=== PATIENT | female | born 1960 | race Caucasian/White ===

== ENCOUNTER 2018-04-28 19:30 | Outpatient (CLI) | payer MEDICARE | END 2018-04-28 19:31 | disposition home or self-care (01) | LOC: SLEEPLAB 19:30 | PROVIDERS: ATTEND Family Medicine | DX: G47.33 Obstructive sleep apnea (adult) (pediatric) (principal); F41.9 Anxiety disorder, unspecified; Z94.2 Lung transplant status; I10 Essential (primary) hypertension; I49.3 Ventricular premature depolarization | CPT/HCPCS: 95810 ==

== ENCOUNTER 2018-05-12 20:30 | Outpatient (CLI) | payer MEDICARE | END 2018-05-12 20:31 | disposition home or self-care (01) | LOC: SLEEPLAB 20:30 | PROVIDERS: ATTEND Family Medicine | DX: G47.33 Obstructive sleep apnea (adult) (pediatric) (principal); Z48.24 Encounter for aftercare following lung transplant; F41.9 Anxiety disorder, unspecified; R06.83 Snoring; G47.10 Hypersomnia, unspecified; E66.9 Obesity, unspecified; Z68.43 Body mass index [BMI] 50.0-59.9, adult | CPT/HCPCS: 95811 ==

== ENCOUNTER 2020-03-10 15:19 | Observation (INO) | payer MEDICARE ==
[~2020-03-10 15:19] MED LIST: Iopamidol-370 76% 500 ML 1 ML ONE
[2020-03-10] MEDS ORDERED: Morphine 4 MG/ML VIAL ONE (16:01)
--- NOTE | 2020-03-10 16:05 | RAD ---
Exam: Chest one view HISTORY:Fall. Dizziness. Comparison: 12/24/2014 FINDINGS: Cardiac silhouette:Cardiomegaly. There is slight rightward rotation of the patient which accentuates right heart border. Aorta: Unremarkable Pulmonary vessels: Normal Costophrenic angles: Clear LUNGS: No masses or consolidation. Pneumothorax: None Osseous abnormalities: None IMPRESSION: No acute cardiopulmonary process.
[2020-03-10 16:19] LABS: Bilirubin Negative (Negative); Blood, Urine Negative (Negative); Clarity Clear (Clear); Glucose, Urine (Dipstick) Normal (Negative); Ketone, Urine Negative (Negative); Leukocyte Negative Leu/uL (Negative); Nitrite Negative (Negative); Protein, Urine (Dipstick) Negative (Neg-Trace); Specific Gravity, Urine 1.018 (1.002-1.036); Urobilinogen Normal mg/dL (Less than 2); pH, Urine 6.5 (5.0-9.0)
[2020-03-10 16:24] LABS: #Monocytes 0.8 thou/uL (0.11-0.59); #Neutrophils 7.4 thou/uL (1.40-6.50); %Basophils 0.1 % (0.0-1.0); %Eosinophils 0.1 % (0.0-10.0); %Lymphocytes 11.1 % (21.0-51.0); %Monocytes 8.2 % (0.0-10.0); %Neutrophils 80.6 % (42.0-75.0); Hemoglobin 13.4 g/dL (12.0-16.0); Mean Corpuscular HGB CONC 32.4 g/dL (32.0-36.0); Mean Corpuscular Hemoglobin 29.1 pg (27.0-31.0); Mean Corpuscular Volume 89.7 fL (78.0-98.0); Mean Platelet Volume 8.1 fL (7.4-10.4); Platelet Count 241 thou/uL (130-400); RBC Distribution Width 14.6 % (11.5-14.5); Red Blood Cell (RBC) Count 4.61 mill/uL (4.20-5.40); White Blood Cell (WBC) Count 9.2 thou/uL (4.8-10.8)
[2020-03-10 16:30] LABS: INR-International Normal Ratio 1.7; PTT 39.3 sec (22.9-36.1); Prothrombin Time 20.5 sec (12.0-14.7)
[2020-03-10 16:45] LABS: ALT (SGPT) 19 U/L (8-55); AST (SGOT) 24 U/L (5-34); Albumin 3.3 g/dL (3.5-5.0); Alkaline Phosphatase 113 U/L (40-110); Anion Gap 15 mmol/L (10-20); BUN (Urea Nitrogen) 19 mg/dL (9.8-20.1); Bilirubin, Total 0.4 mg/dL (0.2-1.2); Calc. Creatinine Clearance 0 mL/min (70-130); Calcium 8.8 mg/dL (7.8-10.44); Carbon Dioxide 22 mmol/L (22-29); Chloride 109 mmol/L (98-107); Globulin 2.7 g/dL (2.4-3.5); Glucose 102 mg/dL (70-105); Potassium 4.1 mmol/L (3.5-5.1); Sodium 142 mmol/L (136-145)
--- NOTE | 2020-03-10 17:00 | CT ---
Exam: Head CT without contrast HISTORY: Fall. Pain. Dizziness. COMPARISON: 12/24/2014 FINDINGS: Hemorrhage: No intraparenchymal hemorrhage or extra-axial hematoma. Brain parenchyma: Cortical sosa-white matter differentiation is preserved. No mass effect or midline shift. Basilar cisterns are patent.Nonspecific hypodensity involving the left [place] radiata. Findings may be iatrogenic given the presence of a erik hole defect involving the left frontal calvar ium. Conservatively, brain MRI can be performed. Ventricular system: Ventricles and sulci are patent and symmetric. Calvarium: Cortical defect. No fracture Sinuses and mastoid air cells: Adequate aeration. IMPRESSION: Indeterminate hypodensity involving the left elmore radiata. Chronic changes due to possible previous intervention is a consideration. However, as a conservative measure, brain MRI with and without contrast is recommended.
--- NOTE | 2020-03-10 17:06 | CT ---
CT OF THE ABDOMEN AND PELVIS WITHOUT IV CONTRAST INDICATION: Fall with hip pain and lumbar spine pain COMPARISON: None FINDINGS: The lack of IV contrast limits evaluation of the solid organs of the abdomen and pelvis. ABDOMEN: Lung bases: There is mild subsegmental atelectasis. There are calcified lymph nodes within the medias tinum and hilar regions. Liver: No focal lesion. Gallbladder: Surgically absent Pancreas: Fatty replacement Adrenal glands: Normal. Spleen: Calcified granuloma Kidneys and ureters: Bilateral nephrolithiasis. Largest stone is seen within the lower pole the right kidney measuring 3 mm. Vasculature: Infrarenal IVC filter. There are moderate vascular calcifications seen involving the vis ualized vasculature. Lymph nodes:No lymphadenopathy. Free fluid in abdomen:No free fluid is evident. PELVIS: Small and large bowel: There is diastases of the rectus abdominis within the lower midline anterior a bdominal wall hernia containing unobstructed loops of colon. The abdominal wall hernia mouth measures 4.8 cm. There is a mild amount retained stool within the colon. Small bowel is of normal lorena iber. There is a gastric band in place. Catheter tubing is connected to the port and appears continuous. Appendix:Normal Bladder: Normal. Rectal and perirectal soft tissues:Normal. Reproductive structures: Normal. Free fluid in pelvis: No free fluid is evident. Lymphadenopathy pelvis: No lymphadenopathy is evident. Osseous structures: No acute osseous abnormality. No destructive osteolytic or osteoblastic lesion i s identified. There is scattered degenerative and osteoarthritic changes. Soft tissues:Normal. IMPRESSION: 1. No acute abnormality.
--- NOTE | 2020-03-10 17:50 | PDOC.HHP ---
Hospitalist HPI - History of Present Illness Fall History of Present Illness: PCP: Dr. Ford The patient is a 59-year-old female with a past medical history significant for pulmonary hypertension, bilateral lung transplant (2014), CAD x2 stents, DVT (on Coumadin), SLE, SHARI that presents to the emergency department via EMS for the above complaint. The patient reports while ambulating in her home, she lost her balance and she fell backwards, landing on her "butt". She usually ambulates with a roller walker, however, she was not using it at the time of her fall. She remembers the fall, denies any LOC or hitting her head. She has no head pain or neck stiffness. She does report left shoulder pain and has a history of bilateral rotator cuff issues, which she has not had surgery for at this time. She reports that her left shoulder is a little bit more sore and stiff than usual. She denies any previous injury prior to her fall. No changes to her home medications. No recent fever/illness. No known sick contacts. She denies any chest pain, heart palpitations or lightheadedness. She denies any shortness of breath, cough, wheezing or hemoptysis. She denies any abdominal pain, nause a, vomiting, hematochezia/melena. She denies any dysuria or hematuria. She has no other complaints at this time. ED Course: VITAL SIGNS SunMar 10, 2020 15:25 SARAH Corey Rachel BP: 152/75 (Lying), MAP: 100, Pulse: 66, O2 sat: 98 on (Room Air), Time: 03/10/2020 15:25. VITAL SIGNS SunMar 10, 2020 15:40 SARAH Corey Rachel Temp: 97.8 (Oral), Pain: 8, Time: 03/10/2020 15:40. Medications: morphine injection 4 mg IV Push Given 16:20 03/10/2020 sodium chloride 0.9 % intravenous 1000 mL IV Fluid Infusion Given 16:17 03/10/2020 Hospitalist ROS - Review of Systems All other systems reviewed; all pertinent +/- noted in HPI/Subj - Medication Medications: aspirin oral SunMar 10, 2020 17:05 SARAH Corey Rachel TABLET : Strength - 81 mg : ORAL Patient Dose: 81 mg Oral once a day. levothyroxine oral SunMar 10, 2020 17:05 SARAH Corey Rachel TABLET : Strength - 50 mcg : ORAL Patient Dose: 50 mcg Oral once a day. acyclovir oral SunMar 10, 2020 17:06 SARAH Corey Rachel capsule : Strength - 200 mg : ORAL Patient Dose: Unknown. Citrucel SunMar 10, 2020 17:07 SARAH Corey Rachel tablet : Strength - 500 mg : ORAL Patient Dose: Unknown. folic acid oral SunMar 10, 2020 17:07 SARAH Corey Rachel tablet : Strength - 1 mg : ORAL Patient Dose: Unknown. itraconazole SunMar 10, 2020 17:08 SARAH Corey Rachel capsule : Strength - 100 mg : ORAL Patient Dose: Unknown. magnesium SunMar 10, 2020 17:08 SARAH Corey Rachel tablet : ORAL Patient Dose: Unknown. Reglan oral SunMar 10, 2020 17:08 SARAH Corey Rachel tablet : Strength - 5 mg : ORAL Patient Dose: Unknown. metoprolol tartrate oral SunMar 10, 2020 17:09 SARAH Corey Rachel tablet : Strength - 50 mg : ORAL Patient Dose: Unknown. CellCept SunMar 10, 2020 17:09 SARAH Corey Rachel tablet : Strength - 500 mg : ORAL Patient Dose: Unknown. pravastatin SunMar 10, 2020 17:09 SARAH Corey Rachel tablet : Strength - 80 mg : ORAL Patient Dose: Unknown. predniSONE SunMar 10, 2020 17:10 SARAH Corey Rachel tablet : Strength - 5 mg : ORAL Patient Dose: Unknown. sertraline SunMar 10, 2020 17:12 SARAH Corey Rachel tablet : Strength - 50 mg : ORAL Patient Dose: Unknown. Bactrim DS SunMar 10, 2020 17:13 SARAH Corey Rachel tablet : Strength - 800 mg-160 mg : ORAL Patient Dose: Unknown. tacrolimus oral SunMar 10, 2020 17:15 SARAH Corey Rachel capsule : Strength - 0.5 mg : ORAL Patient Dose: Unknown. topiramate SunMar 10, 2020 17:18 SARAH Corey Rachel capsule, sprinkle : Strength - 25 mg : ORAL Patient Dose: Unknown. warfarin SunMar 10, 2020 17:18 SARAH Corey Rachel tablet : Strength - 1 mg : ORAL Patient Dose: Unknown. 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 negative: ill appearing Eye: PERRL, anicteric sclera ENT: normocephalic atraumatic, moist mucosa Neck: supple, symmetric Heart: RRR, no murmur, no gallops, no rubs, normal peripheral pulses Respiratory: CTAB, no wheezes, no rales, no ronchi, normal chest expansion, no tachypnea Gastrointestinal: soft, non-tender, no guarding, no rigidity Gastrointestinal - other findings: Distant bowel sounds, no rebound tenderness Extremities: no cyanosis, no edema Skin: no rashes Neurological: cranial nerve grossly intact, no new deficit Neurological - other findings: Hints exam unremarkable, GCS 15 Musculoskeletal: normal tone, normal strength Psychiatric: normal affect, A&O x 3 Hospitalist Results - Labs Result Diagrams: 03/10/20 16:11 03/10/20 16:11 Lab results: WBC 9.2 thou/uL (4.8-10.8) 03/10/20 16:11 Hgb 13.4 g/dL (12.0-16.0) 03/10/20 16:11 Hct 41.4 % (36.0-47.0) 03/10/20 16:11 MCV 89.7 fL (78.0-98.0) 03/10/20 16:11 Plt Count 241 thou/uL (130-400) 03/10/20 16:11 Neutrophils % 80.6 % (42.0-75.0) H 03/10/20 16:11 Sodium 142 mmol/L (136-145) 03/10/20 16:11 Potassium 4.1 mmol/L (3.5-5.1) 03/10/20 16:11 Chloride 109 mmol/L (98-107) H 03/10/20 16:11 Carbon Dioxide 22 mmol/L (22-29) 03/10/20 16:11 BUN 19 mg/dL (9.8-20.1) 03/10/20 16:11 Creatinine 0.93 mg/dL (0.6-1.1) 03/10/20 16:11 Glucose 102 mg/dL (70-105) 03/10/20 16:11 Calcium 8.8 mg/dL (7.8-10.44) 03/10/20 16:11 Total Bilirubin 0.4 mg/dL (0.2-1.2) 03/10/20 16:11 AST 24 U/L (5-34) 03/10/20 16:11 ALT 19 U/L (8-55) 03/10/20 16:11 Alkaline Phosphatase 113 U/L (40-110) H 03/10/20 16:11 Serum Total Protein 6.0 g/dL (6.0-8.3) 03/10/20 16:11 Albumin 3.3 g/dL (3.5-5.0) L 03/10/20 16:11 Urine Ketones Negative mg/dL (Negative) 03/10/20 15:52 Urine Blood Negative (Negative) 03/10/20 15:52 Urine Nitrite Negative (Negative) 03/10/20 15:52 Ur Leukocyte Esterase Negative Rachael/uL (Negative) 03/10/20 15:52 - EKG Interpretation EKG: Heart rate 59 QTc 463 sinus bradycardia no ectopy. - Radiology Interpretation CT scan - head Status: report reviewed by me Additional Comment: IMPRESSION: Indeterminate hypodensity involving the left elmore radiata. Chronic changes due to possible previous intervention is a consideration. However, as a conservative measure, brain MRI with and without contrast is recommended. CT scan - abdomen Status: report reviewed by me Additional Comment: IMPRESSION: 1. No acute abnormality. Chest x-ray Status: report reviewed by me Additional Comment: IMPRESSION: No acute cardiopulmonary process. Hospitalist H&P A/P - Problem (1) Abnormal finding on CT scan Code(s): R93.89 - ABNORMAL FINDINGS ON DX IMAGING OF OTH BODY STRUCTURES Status: Acute (2) Left shoulder pain Code(s): M25.512 - PAIN IN LEFT SHOULDER Status: Acute (3) Fall Code(s): W19.XXXA - UNSPECIFIED FALL, INITIAL ENCOUNTER Status: Acute (4) CAD (coronary artery disease) Code(s): I25.10 - ATHSCL HEART DISEASE OF [place] CORONARY ARTERY W/O ANG PCTRS Status: Chronic (5) History of DVT (deep vein thrombosis) Code(s): Z86.718 - PERSONAL HISTORY OF OTHER VENOUS THROMBOSIS AND EMBOLISM Status: Chronic (6) History of lung transplant Code(s): Z94.2 - LUNG TRANSPLANT STATUS Status: Chronic (7) SHARI (obstructive sleep apnea) Code(s): G47.33 - OBSTRUCTIVE SLEEP APNEA (ADULT) (PEDIATRIC) Status: Chronic (8) HTN (hypertension) Code(s): I10 - ESSENTIAL (PRIMARY) HYPERTENSION Status: Chronic (9) HLD (hyperlipidemia) Code(s): E78.5 - HYPERLIPIDEMIA, UNSPECIFIED Status: Chronic (10) Anxiety Code(s): F41.9 - ANXIETY DISORDER, UNSPECIFIED Status: Chronic (11) Hypothyroidism Code(s): E03.9 - HYPOTHYROIDISM, UNSPECIFIED Status: Chronic - Plan Plan: 59/F with PMH DVT (on Coumadin) presents for fall. Admit to stroke unit, observation status. Expected length of stay less than 2 midnights. Presented stable vital signs. EKG sinus bradycardia, no ST elevation CT brain indeterminate hypodensity of left [place] radiata. CT abdomen pelvis no acute process. CXR no acute cardiopulmonary process. PT 20.5, INR 1.7 UA, CMP, CBC unremarkable #Abnormal finding on CT scan Neurosurgery consulted by ER MD, recommend MRI in a.m. Has history brain stem abscess with I&D. Will consult neurology. #Left shoulder pain Reports increased pain to left shoulder. History chronic rotator cuff injury without surgery. We will get x-ray of shoulder. Analgesia as needed. #Fall Appears mechanical, was ambulating without roller walker. On Coumadin daily. Subtherapeutic INR. CT brain no bleed upon admission. We will restart home dose Coumadin. Neurochecks every 4. Fall precautions. #CAD History of 2 stents. Takes metoprolol, baby aspirin at home. Restart home medications when reconciled by nursing. #History of DVT Takes Coumadin daily. INR subtherapeutic, 1.7 upon admission. We will restart home dose Coumadin. #History of lung transplant Bilateral lung transplant (2014) Takes prednisone, CellCept, Bactrim, tacrolimus, acyclovir, itraconazole at home. Restart home medications when reconciled by nursing. #SHARI Has home CPAP, did not bring it with her. Consult RT to manage CPAP at night. #HTN Restart home medications when reconciled by nursing. #HLD Restart home medications reconciled by nursing. #Anxiety Denies SI/HI. Takes sertraline and Xanax as needed. Discussed holding Xanax this evening. Restart sertraline when reconciled by nursing. #Hypothyroidism Takes levothyroxine at home. Check TSH. Restart home dose levothyroxine reconciled by nursing. No SCDs or pharmacological DVT prophylaxis. Pepcid for GI prophylaxis. Full code. [place] is her daughter, Althea at [phone]. Discussed the case with Dr. Lyle.
[2020-03-10] MEDS ORDERED: Ondansetron PF 4 MG/2 ML Vial IVP PRN (18:37)
[2020-03-10] MEDS ORDERED: Ondansetron ODT 4 MG TAB PO PRN (18:37)
[2020-03-10] MEDS ORDERED: Acetaminophen 325 MG TAB PO PRN (18:37)
[2020-03-10] MEDS ORDERED: HYDROcodone/Acetaminophen 5/325 mg Tablet PO PRN (18:40)
[2020-03-10 19:43] LABS: Troponin I Less than 0.010 ng/mL (< 0.028)
--- NOTE | 2020-03-10 20:17 | RAD ---
THREE VIEWS OF THE LEFT SHOULDER: 03/10/20 HISTORY: Fall with left shoulder pain. FINDINGS: Two views of the left shoulder shows no evidence of acute fracture or dislocation. Diffuse mixed infi ltrates are seen in the lungs. No degenerative changes are seen in the left shoulder. IMPRESSION: No evidence of acute osseous abnormality. POS: EAA
[2020-03-10 23:18] VITALS: BMI 65.7
[2020-03-10 23:18] LABS: Troponin I 0.022 ng/mL (< 0.028)
[2020-03-10] MEDS ORDERED: Warfarin Sodium 1 MG TAB PO SCH (23:30)
[2020-03-10] MEDS: Famotidine 20 MG TAB PO SCH (23:45)
[2020-03-11 02:03] LABS: Troponin I Less than 0.010 ng/mL (< 0.028)
[2020-03-11 04:34] LABS: #Lymphocytes 0.9 thou/uL (1.20-3.40); #Monocytes 0.7 thou/uL (0.11-0.59); #Neutrophils 8.4 thou/uL (1.40-6.50); %Basophils 0.1 % (0.0-1.0); %Lymphocytes 9.4 % (21.0-51.0); %Monocytes 6.8 % (0.0-10.0); %Neutrophils 83.7 % (42.0-75.0); Mean Corpuscular HGB CONC 32.8 g/dL (32.0-36.0); Mean Corpuscular Hemoglobin 29.2 pg (27.0-31.0); Mean Platelet Volume 8.1 fL (7.4-10.4); Platelet Count 237 thou/uL (130-400); RBC Distribution Width 14.6 % (11.5-14.5); Red Blood Cell (RBC) Count 4.45 mill/uL (4.20-5.40); White Blood Cell (WBC) Count 10.1 thou/uL (4.8-10.8)
[2020-03-11 04:40] LABS: INR-International Normal Ratio 1.7; PTT 43.4 sec (22.9-36.1); Prothrombin Time 20.3 sec (12.0-14.7)
[2020-03-11 04:51] LABS: Anion Gap 12 mmol/L (10-20); BUN (Urea Nitrogen) 16 mg/dL (9.8-20.1); Calc. Creatinine Clearance 196 mL/min (70-130); Calcium 8.6 mg/dL (7.8-10.44); Carbon Dioxide 22 mmol/L (22-29); Chloride 109 mmol/L (98-107); Glucose 115 mg/dL (70-105); Sodium 139 mmol/L (136-145)
[2020-03-11 08:14] LABS: SARS-CoV-2 N Gene Positive; SARS-CoV-2 by NAA DETECTED (NotDetected); SARS-CoV-2 orf1ab Positive
[2020-03-11 08:15] LABS: SARS-CoV-2 MS2 Positive; SARS-CoV-2 S Gene Negative
[2020-03-11] MEDS: Famotidine 20 MG TAB PO SCH (09:17)
--- NOTE | 2020-03-11 12:03 | PDOC.DS.DS ---
Provider - Provider Date of Admission: 03/10/20 17:42 Date of Discharge: 03/11/20 Admitting Provider: Trevin Lyle MD Primary Care Physician: Chema Urbina MD Course - Hospital Course Hospital Course: "History of Present Illness: PCP: Dr. Ford The patient is a 59-year-old female with a past medical history significant for pulmonary hypertension, bilateral lung transplant (2014), CAD x2 stents, DVT (on Coumadin), SLE, SHARI that presents to the emergency department via EMS for the above complaint. The patient reports while ambulating in her home, she lost her balance and she fell backwards, landing on her "butt". She usually ambulates with a roller walker, however, she was not using it at the time of her fall. She remembers the fall, denies any LOC or hitting her head. She has no head pain or neck stiffness. She does report left shoulder pain and has a history of bilateral rotator cuff issues, which she has not had surgery for at this time. She reports that her left shoulder is a little bit more sore and stiff than usual. She denies any previous injury prior to her fall. No changes to her home medications. No recent fever/illness. No known sick contacts. She denies any chest pain, heart palpitations or lightheadedness. She denies any shortness of breath, cough, wheezing or hemoptysis. She denies any abdominal pain, nausea, vomiting, hematochezia/melena. She denies any dysuria or hematuria. She has no other complaints at this time." The patient CT scan of the head did not show any acute abnormalities to explain her symptoms. MRI of the brain could not be obtained due to the patient's weight. Patient was evaluated by physical therapy during her hospital stay. Outpatient follow-up with PCP was recommended in 1 week. Resuscitation Status: 03/10/20 18:37 Resuscitation Status Routine Co-Sign Provider: Resuscitation Status: FULL: Full Resuscitation Discussed with: patient - Labs Lab Results: 03/11/20 04:18 03/11/20 04:18 Abnormal Lab Results - Last 48 hrs 03/10/20 16:11: Chloride 109 H, Alkaline Phosphatase 113 H, Albumin 3.3 L 03/10/20 16:11: RDW 14.6 H, Neutrophils % 80.6 H, Lymphocytes % 11.1 L, Neutrophils # 7.4 H, Lymphocytes # 1.0 L, Monocytes # 0.8 H 03/10/20 16:11: PT 20.5 H, APTT 39.3 H 03/11/20 03:58: SARS-CoV-2 (PCR) DETECTED A* 03/11/20 04:18: Chloride 109 H 03/11/20 04:18: RDW 14.6 H, Neutrophils % 83.7 H, Lymphocytes % 9.4 L, Neutrophils # 8.4 H, Lymphocytes # 0.9 L, Monocytes # 0.7 H 03/11/20 04:18: PT 20.3 H, APTT 43.4 H - Physical Exam Vitals: Vital Signs (12 hours) Temp Pulse Resp BP Pulse Ox 03/11/20 12:00 97.9 F 94 19 152/72 H 96 03/11/20 11:30 98.2 F 72 20 108/66 95 03/11/20 07:21 98.2 F 82 20 126/73 96 03/11/20 04:00 98.2 F 73 24 H 118/67 95 Weight Weight 371 lb 0.607 oz Physical Exam: The patient was seen and examined on the day of discharge. Problem - Problem (1) Fall Code(s): W19.XXXA - UNSPECIFIED FALL, INITIAL ENCOUNTER Status: Acute (2) Left shoulder pain Code(s): M25.512 - PAIN IN LEFT SHOULDER Status: Acute (3) CAD (coronary artery disease) Code(s): I25.10 - ATHSCL HEART DISEASE OF [place] CORONARY ARTERY W/O ANG PCTRS Status: Chronic (4) HLD (hyperlipidemia) Code(s): E78.5 - HYPERLIPIDEMIA, UNSPECIFIED Status: Chronic (5) HTN (hypertension) Code(s): I10 - ESSENTIAL (PRIMARY) HYPERTENSION Status: Chronic - Time spent with Patient (mins): 30 Plan - Discharge Medications Home Medications: Medication Instructions Recorded Confirmed Type Aspirin [Ecotrin Low Strength] 81 mg PO DAILY #0 tab 10/15/12 03/11/20 Rx ALPRAZolam [Xanax] 0.25 mg PO HS 04/01/14 03/11/20 History Chlorpheniramine Maleate [Allergy] 4 mg PO Q6HR PRN 04/01/14 03/11/20 History Furosemide [Lasix] 20 mg PO DAILY PRN 04/01/14 03/11/20 History Levothyroxine Sodium [Synthroid] 50 mcg PO DAILY 04/01/14 03/11/20 History Sertraline HCl [Zoloft] 100 mg PO DAILY 04/01/14 03/11/20 History Acyclovir 200 mg PO DAILY 12/24/14 03/11/20 History Calcium Carbonate + Vit D [Oscal + 1,250 mg PO BID 12/24/14 03/11/20 History Vitamin D] Fluticasone Propionate [Flonase 1 spray EA NARE DAILY PRN 12/24/14 03/11/20 History Nasal Morganza] Magnesium Oxide [Magnesium] 400 mg PO BID 12/24/14 03/11/20 History Metoclopramide HCl [Reglan] 5 mg PO QID 12/24/14 03/11/20 History Metoprolol Tartrate 50 mg PO BID 12/24/14 03/11/20 History Multivitamin [Multivitamins] 1 cap PO DAILY 12/24/14 03/11/20 History Mycophenolate Sodium [Myfortic] 500 mg PO BID 12/24/14 03/11/20 History Pravastatin Sodium [Pravachol] 80 mg PO HS 12/24/14 03/11/20 History Tacrolimus [Prograf] 0.5 mg PO QAM 12/24/14 03/11/20 History predniSONE 5 mg PO DAILY 12/24/14 03/11/20 History Cellothyl [Citrucel Tablet] 2 tab PO DAILY 03/11/20 03/11/20 History Cholecalciferol [Vitamin D3] 5,000 unit PO DAILY 03/11/20 03/11/20 History Cyanocobalamin (Vitamin B-12) 1,000 mcg PO DAILY 03/11/20 03/11/20 History [Vitamin B-12] Famotidine 20 mg PO BID PRN 03/11/20 03/11/20 History Folic Acid 1 mg PO DAILY 03/11/20 03/11/20 History Itraconazole 200 mg PO BID 03/11/20 03/11/20 History Magnesium Chloride [Mag Delay] 64 mg PO BID 03/11/20 03/11/20 History Melatonin 3 mg PO HS PRN 03/11/20 03/11/20 History Sulfamethoxazole/Trimethoprim 1 tab PO MWF 03/11/20 03/11/20 History [Bactrim DS] Topiramate [Topamax] 1 tab PO BID 03/11/20 03/11/20 History Warfarin Sodium 1 mg PO DAILY 03/11/20 03/11/20 History Allergies: adhesive Allergy (Mild, Verified 07/01/19 03:02) Rash ADHESIVE TAPE Sulfa (Sulfonamide Antibiotics) Allergy (Verified 03/10/20 23:15) Rash 03/10/20- pt denies allergy sumatriptan [From Imitrex] Adverse Reaction (Intermediate, Verified 03/10/20 23:15) Anxiety 03/10/20- pt denies allergy SOB CP Pain in arms, neck, back. Discoloration of hands sumatriptan succinate [From Imitrex] Adverse Reaction (Intermediate, Verified 03/10/20 23:14) Anxiety 03/10/20- pt denies allergy SOB CP Pain in arms, neck, back. Discoloration of hands - Follow up Plan Referrals: Chema Urbina MD [Primary Care Provider] - Disposition: HOME Quality - Care Measures CORE MEASURES:: N/A
--- NOTE | 2020-03-11 13:45 | CON ---
NEUROLOGY CONSULTATION DATE OF CONSULTATION: 03/11/2020 REASON FOR CONSULTATION: Status post fall/abnormal head CT. HISTORY OF PRESENT ILLNESS: Ms. Riley is a 59-year-old female with medical history significant for pulmonary hypertension, bilateral lung transplant in 2015, coronary artery disease status post stents x2, DVT on Coumadin, lupus, and obstructive sleep apnea, presented to the emergency department because of a fall. Patient lost her balance and landed on the floor. She did not hit her head or lose consciousness. The patient denies any focal weakness, focal paresthesias, nausea, vomiting, headache, chest pain, abdominal pain, recent illness or recent exposure to COVID. In the emergency room, the vitals were done, which showed blood pressure was 152/75, pulse 66, respiratory rate 18. She was given morphine injection and normal saline and head CT was done, which shows hypodensity involving the left elmore radiata. Neurology was consulted for evaluation. REVIEW OF SYSTEMS: All systems reviewed and were negative except the pertinent positives and negatives mentioned in the HPI. HOME MEDICATIONS: 1. Aspirin. 2. Levothyroxine. 3. Acyclovir. 4. Citrucel. 5. Folic acid. 6. Itraconazole. 7. Magnesium. 8. Reglan. 9. Metoprolol. 10. CellCept. 11. Pravastatin. 12. Prednisone. 13. Sertraline. 14. Bactrim. 15. Tacrolimus. 16. Topiramate. 17. Warfarin. ALLERGIES: ADHESIVE, SULFA, SUMATRIPTAN. PAST MEDICAL HISTORY: Coronary artery disease, hypertension, hyperlipidemia, SVT. The patient also has history of brainstem abscess with incision and drainage and hypothyroidism. PAST SURGICAL HISTORY: Appendectomy, cholecystectomy, bilateral lung transplant, gastric bypass, coronary artery disease, status post stents x2. SOCIAL HISTORY: The patient lives with family. She is disabled. Uses cane and walker. She denies smoking, alcohol, illegal drug use. Family history: No family history of premature coronary artery disease. Vital signs: 152/72 77 18 PHYSICAL EXAMINATION: General Appearance: NAD, awake alert. negative: ill appearing Eye: PERRL, anicteric sclera ENT: normocephalic atraumatic, moist mucosa Neck: supple, symmetric Heart: RRR, no murmur, no gallops, no rubs, normal peripheral pulses Respiratory: CTAB, no wheezes, no rales, no ronchi, normal chest expansion, no tachypnea Gastrointestinal: soft, non-tender, no guarding, no rigidity Gastrointestinal - other findings: Distant bowel sounds, no rebound tenderness Extremities: no cyanosis, no edema Skin: no rashes Neurological: Mental status: The patient is alert and oriented to person, place, and time. Recent and remote memory intact. Fund of knowledge is appropriate. Speech is clear. Cranial nerves 2 through 12 intact. Motor, muscle tone and bulk are normal. Strength 5/5 bilaterally. Sensory intact. Cerebellar, finger-nose testing intact. Gait deferred due to patient's safety reason. DATA REVIEWED: WBC 9.2 thou/uL (4.8-10.8) 03/10/20 16:11 Hgb 13.4 g/dL (12.0-16.0) 03/10/20 16:11 Hct 41.4 % (36.0-47.0) 03/10/20 16:11 MCV 89.7 fL (78.0-98.0) 03/10/20 16:11 Plt Count 241 thou/uL (130-400) 03/10/20 16:11 Neutrophils % 80.6 % (42.0-75.0) H 03/10/20 16:11 Sodium 142 mmol/L (136-145) 03/10/20 16:11 Potassium 4.1 mmol/L (3.5-5.1) 03/10/20 16:11 Chloride 109 mmol/L (98-107) H 03/10/20 16:11 Carbon Dioxide 22 mmol/L (22-29) 03/10/20 16:11 BUN 19 mg/dL (9.8-20.1) 03/10/20 16:11 Creatinine 0.93 mg/dL (0.6-1.1) 03/10/20 16:11 Glucose 102 mg/dL (70-105) 03/10/20 16:11 Calcium 8.8 mg/dL (7.8-10.44) 03/10/20 16:11 Total Bilirubin 0.4 mg/dL (0.2-1.2) 03/10/20 16:11 AST 24 U/L (5-34) 03/10/20 16:11 ALT 19 U/L (8-55) 03/10/20 16:11 Alkaline Phosphatase 113 U/L (40-110) H 03/10/20 16:11 Serum Total Protein 6.0 g/dL (6.0-8.3) 03/10/20 16:11 Albumin 3.3 g/dL (3.5-5.0) L 03/10/20 16:11 Urine Ketones Negative mg/dL (Negative) 03/10/20 15:52 Urine Blood Negative (Negative) 03/10/20 15:52 Urine Nitrite Negative (Negative) 03/10/20 15:52 Ur Leukocyte Esterase Negative Rachael/uL (Negative) 03/10/20 15:52 - EKG Interpretation EKG: sinus bradycardia - Radiology Interpretation CT scan - head Status: report reviewed by me Additional Comment: IMPRESSION: Indeterminate hypodensity involving the left elmore radiata. Chronic changes due to possible previous intervention is a consideration. However, as a conservative measure, brain MRI with and without contrast is recommended. CT scan - abdomen Status: report reviewed by me Additional Comment: IMPRESSION: 1. No acute abnormality. Chest x-ray Status: report reviewed by me Additional Comment: IMPRESSION: No acute cardiopulmonary process. ASSESSMENT AND PLAN: (1) Abnormal finding on CT scan Code(s): R93.89 - ABNORMAL FINDINGS ON DX IMAGING OF OTH BODY STRUCTURES Status: Acute (2) Left shoulder pain Code(s): M25.512 - PAIN IN LEFT SHOULDER Status: Acute (3) Fall Code(s): W19.XXXA - UNSPECIFIED FALL, INITIAL ENCOUNTER Status: Acute (4) CAD (coronary artery disease) Code(s): I25.10 - ATHSCL HEART DISEASE OF [place] CORONARY ARTERY W/O ANG PCTRS Status: Chronic (5) History of DVT (deep vein thrombosis) Code(s): Z86.718 - PERSONAL HISTORY OF OTHER VENOUS THROMBOSIS AND EMBOLISM Status: Chronic (6) History of lung transplant Code(s): Z94.2 - LUNG TRANSPLANT STATUS Status: Chronic (7) SHARI (obstructive sleep apnea) Code(s): G47.33 - OBSTRUCTIVE SLEEP APNEA (ADULT) (PEDIATRIC) Status: Chronic (8) HTN (hypertension) Code(s): I10 - ESSENTIAL (PRIMARY) HYPERTENSION Status: Chronic (9) HLD (hyperlipidemia) Code(s): E78.5 - HYPERLIPIDEMIA, UNSPECIFIED Status: Chronic (10) Anxiety Code(s): F41.9 - ANXIETY DISORDER, UNSPECIFIED Status: Chronic (11) Hypothyroidism Code(s): E03.9 - HYPOTHYROIDISM, UNSPECIFIED Status: Chronic Ms. Riley is a 59-year-old female with multiple comorbidities presented to the emergency room status post fall. There was a concern about abnormal head CT, with hypodensity in the left elmore radiata, which seems to be chronic. The patient does not have any new neurological deficits or focal deficits on exam. She has been tested positive for COVID, so MRI of the brain could not be done at this time. There is also weight limit for MRI of the brain at [facility] and she will not fit in that criteria. She follows Dr. Velez as outpatient. She can follow up with Dr. Velez and have an MRI done as outpatient at [facility] where the weight limit is 500 pounds. Continue strict control of blood pressure and blood glucose. Continue aspirin and statin for secondary stroke prevention. Continue home medications. Continue medical management per primary team, PT/OT/Speech. The plan discussed in detail with the patient and the nursing staff. Thank you for the consult. Job ID: [id number] MTDD
[2020-03-11 14:34] VITALS: BP 136/73; TEMP 97.6
[2020-03-11] MEDS ORDERED: Warfarin Sodium 1 MG TAB PO SCH (21:00)
--- NOTE | 2020-03-13 11:25 | EKG ---
Test Reason : Blood Pressure : / mmHG Vent. Rate : 059 BPM Atrial Rate : 059 BPM P-R Int : 172 ms QRS Dur : 120 ms QT Int : 468 ms P-R-T Axes : 067 -36 045 degrees QTc Int : 463 ms Sinus bradycardia with sinus arrhythmia Left axis deviation Right bundle branch block Septal infarct , age undetermined Abnormal ECG Confirmed by GEORGE CAMARILLO ([id number]), publications editor ALEX MONTESINOS ([id number]) on 03/13/2020 11:25:05 AM Referred By: Confirmed By:GEORGE CAMARILLO
== END 2020-03-11 14:26 | disposition home or self-care (01) ==
LOC: ERS 15:19 → 2SE 17:42
PROVIDERS: ADMIT Internal Medicine; ATTEND Internal Medicine
DX: U07.1 COVID-19 (principal); R93.89 Abnormal findings on diagnostic imaging of other specified body structures; M25.512 Pain in left shoulder; I25.10 Atherosclerotic heart disease of native coronary artery without angina pectoris; G47.33 Obstructive sleep apnea (adult) (pediatric); I10 Essential (primary) hypertension; E78.5 Hyperlipidemia, unspecified; F41.9 Anxiety disorder, unspecified; E03.9 Hypothyroidism, unspecified; M32.9 Systemic lupus erythematosus, unspecified; N20.0 Calculus of kidney; I27.20 Pulmonary hypertension, unspecified; Z86.718 Personal history of other venous thrombosis and embolism; Z79.01 Long term (current) use of anticoagulants; Z79.2 Long term (current) use of antibiotics; Z79.52 Long term (current) use of systemic steroids; Z79.82 Long term (current) use of aspirin; Z79.899 Other long term (current) drug therapy; Z88.2 Allergy status to sulfonamides; Z88.8 Allergy status to other drugs, medicaments and biological substances; Z91.048 Other nonmedicinal substance allergy status; Z94.2 Lung transplant status; Z95.5 Presence of coronary angioplasty implant and graft; W19.XXXA Unspecified fall, initial encounter
CPT/HCPCS: 51701; 70450; 71045; 73030; 74176; 80048; 80053; 81003; 84443; 84484 ×3; 85025 ×2; 85610 ×2; 85730 ×2; 93005; 96374; 97116; 97139; 97530; 99285; G0378 ×3; U0003; 36415; 87635; J2270; Q9967